=== PATIENT | female | born 1955 | race Caucasian/White ===

== ENCOUNTER → 2018-09-05 | Outpatient (CLI) | payer BC ==
--- NOTE | 2018-09-05 15:33 | XR ---
EXAMINATION TYPE: XR Hip Complete RT DATE OF EXAM: 09/05/2018 CLINICAL HISTORY: pain TECHNIQUE: AP and frogleg views of the right hip are obtained. COMPARISON: None. FINDINGS: There is no acute fracture/dislocation evident. The joint space appears within normal li mits. The overlying soft tissue appears unremarkable. IMPRESSION: 1. There is no acute fracture or dislocation. ICD 10 NO FRACTURE, INITIAL EVALUATION
== END | disposition home or self-care (01) ==
LOC: RADXRMAIN 12:42
PROVIDERS: ATTEND Physician Assistant
DX: M25.551 Pain in right hip (principal)
CPT/HCPCS: 73502

== ENCOUNTER → 2019-06-19 | Outpatient (CLI) | payer BC ==
--- NOTE | 2019-06-20 08:48 | XR ---
EXAMINATION TYPE: XR lumbar spine 2 or 3V DATE OF EXAM: 06/19/2019 CLINICAL HISTORY: Low back pain TECHNIQUE: Frontal, lateral, and oblique images of the lumbar spine are obtained. COMPARISON: None FINDINGS: There are 5 lumbar type vertebral bodies identified. No acute fracture or dislocation. Min imal anterolisthesis of L4 and L5. Multilevel facet arthropathy at L3-4, L4-5 and L5-S1 with disc spa ce narrowing at L4-5 and L5-S1. Pedicles and sacroiliac joints appear intact. IMPRESSION: Minimal anterolisthesis of L4 on L5 with spondylotic changes from L3-L4 to L5-S1.
== END | disposition home or self-care (01) ==
LOC: RADXRMAIN 16:59
PROVIDERS: ATTEND Family Medicine
DX: M43.16 Spondylolisthesis, lumbar region (principal); M47.816 Spondylosis without myelopathy or radiculopathy, lumbar region
CPT/HCPCS: 72100

== ENCOUNTER → 2019-07-13 | Outpatient (CLI) | payer BC ==
--- NOTE | 2019-07-13 09:43 | MR ---
EXAMINATION TYPE: MR lumbar spine wo con DATE OF EXAM: 07/13/2019 COMPARISON: NONE HISTORY: Low back pain TECHNIQUE: T1 and T2 axial and sagittal images of the lumbar spine are submitted. FINDINGS: There is no abnormal signal seen within the visualized spinal cord or paraspinal soft tissu es. At L1-2 there is there is a focal left paracentral disc protrusion. Mild effacement of thecal sac. No foraminal encroachment. At L2-3 there is no disc herniation or canal stenosis. No foraminal encroachment. At L3-4 there is disc desiccation. No disc herniation. Mild facet arthropathy. No canal stenosis or f oraminal encroachment. At L4-5 there is there is a grade 1 anterolisthesis with severe facet arthropathy. Broad-based centra l disc bulging is noted and there is moderate left foraminal and mild right foraminal encroachment. D egenerative disc disease noted with mild central stenosis. At L5-S1 there is vertebral body hemangioma L5. Degenerative disc disease L5-S1 with a right paracent ral and lateral disc bulging or protrusion. Mild right-sided foraminal encroachment. IMPRESSION: 1. Multilevel degenerative disc disease and facet arthropathy most pronounced at L4-5 and L5-S1. Grad e 1 anterolisthesis L4 and L5 contributes to borderline to mild central canal stenosis and bilateral foraminal encroachment. 2. Small focal left paracentral disc protrusion at L1-L2 with mild effacement of thecal sac. No spina l cord contact or foraminal encroachment. 3. Right paracentral and lateral disc bulging at L5-S1 with mild right-sided foraminal encroachment.
== END | disposition home or self-care (01) ==
LOC: RADMRIMAIN 08:28
PROVIDERS: ATTEND Physician Assistant
DX: M48.061 Spinal stenosis, lumbar region without neurogenic claudication (principal); M51.26 Other intervertebral disc displacement, lumbar region; M51.36 Other intervertebral disc degeneration, lumbar region; M46.96 Unspecified inflammatory spondylopathy, lumbar region
CPT/HCPCS: 72148

== ENCOUNTER → 2020-06-10 | Outpatient (CLI) | payer BC ==
--- NOTE | 2020-06-11 05:02 | MR ---
EXAMINATION TYPE: MR hip RT wo con DATE OF EXAM: 06/10/2020 COMPARISON: None HISTORY: Reactive arthritis of right hip, rt hip pain, clicking and locking Multiplanar multiecho imaging of the right hip was performed without contrast. FINDINGS: The pelvic ring appears intact. There is no evidence of pelvic fracture. Proximal right femur and hip joint are intact. There is no evidence of hip dysplasia. There is no evidence of avascular necrosis. There is no free fluid in the pelvis. There is mild hypertrophic acetabular spurring in the right hi p joint. I see no focal bone destruction. There is no evidence of a soft tissue mass. There is very s light increased joint fluid on the right side compared to the left. IMPRESSION: Mild symmetric acetabular spur formation. No fracture seen. No evidence of avascular necrosis. Slight increased fluid on the right side compared to the left could relate to some mild synovitis.
== END | disposition home or self-care (01) ==
LOC: RADMRIMAIN 07:16
PROVIDERS: ATTEND Neurological Surgery
DX: M25.751 Osteophyte, right hip (principal); M25.451 Effusion, right hip

== ENCOUNTER 2023-05-17 09:29 | Day surgery (SDC) | payer BC, MEDICARE ==
[2023-05-12 11:36] VITALS: BMI 41.1
[~2023-05-17 09:29] MED LIST: LACTATED RINGERS 1,000 ML IV SCH; LIDOCAINE 1% (10MG/ML) FOR IV START INTRADERMA PRN
[2023-05-17 10:42] VITALS: RESP 16; TEMP 98.5
[2023-05-17] MEDS ORDERED: PROPOFOL 10 MG/ML 20 ML VIAL IV ONE (11:46)
--- NOTE | 2023-05-17 11:58 | P.PCN ---
Date of Procedure: 05/17/23 Procedure(s) Performed: BRIEF HISTORY: Patient is a 68-year-old pleasant White white female scheduled for an elective colonoscopy as a part of value should prior history of colon polyps. Last colonoscopy was 5 years ago. PROCEDURE PERFORMED: Colonoscopy. PREOPERATIVE DIAGNOSIS: History of colon polyps. IV sedation per Anesthesia. PROCEDURE: After informed consent was obtained, the patient, was brought into the endoscopy unit. IV sedation was administered by Anesthesia under continuous monitoring. Digital rectal examination was normal. Initially the Olympus CF-160 flexible video colonoscope was then inserted in the rectum, gradually advanced into the cecum without any difficulty. Careful examination was performed as the scope was gradually being withdrawn. Ileocecal valve and the appendiceal orifice were visualized and appeared normal. Prep was excellent. Mucosa of the cecum, ascending colon, transverse colon, descending colon, sigmoid colon, and rectum appeared normal. Retroflexion was performed in the rectum and no lesions were seen. The patient tolerated the procedure well. IMPRESSION: Normal-appearing colon from rectum to cecum with no evidence of colorectal neoplasia. RECOMMENDATIONS: Findings of this examination were discussed with the patient as well as a family. She was advised to have a repeat screening colonoscopy in 10 years..
[2023-05-17 12:27] VITALS: BP 145/77; PULSE 62
== END 2023-05-17 12:44 | disposition home or self-care (01) ==
LOC: ORWHC2ENDO 09:29
PROVIDERS: ATTEND Internal Medicine Gastroenterology
DX: Z12.11 Encounter for screening for malignant neoplasm of colon (principal); I10 Essential (primary) hypertension; Z86.010 Personal history of colon polyps; Z79.899 Other long term (current) drug therapy
CPT/HCPCS: G0105; J2704; 45378

== ENCOUNTER → 2023-07-25 | Outpatient (CLI) | payer MEDICARE ==
--- NOTE | 2023-07-25 09:45 | BD ---
EXAMINATION TYPE: Axial Bone Density DATE OF EXAM: 07/25/2023 CLINICAL HISTORY: 68 years old Female. ICD-10 CODE: Z78.0 asymp.menopausal state Height: 62.6 Weight: 257 FRAX RISK QUESTIONS: nothing to note here. RISK FACTORS HISTORY OF: Postmenopausal woman: yes at 57 yrs old. Hyperparathyroidism: no Adrenal Insufficiency: no MEDICATIONS: Additional Medications: bp meds, statin for cholesterol, vit d Additional History: hypertension, cholesterol, EXAM MEASUREMENTS: Bone mineral densitometry was performed using the [employer] System. Bone mineral density as measured about the Lumbar spine is: ----- L1-L4(G/cm2): 1.124 T Score Values are as follows: ----- L1: -1.3 ----- L2: -0.6 ----- L3: -0.7 ----- L4: 0.3 ----- L1-L4: -0.5 Z Score Values are as follows: ----- L1: -0.9 ----- L2: -0.2 ----- L3: -0.3 ----- L4: 0.7 ----- L1-L4: 0.0 Bone mineral density first dexa study....baseline. Bone mineral density about the R hip (g/cm2): 1.025 Bone mineral density about the L hip (g/cm2): 1.092 T Score values are as follows: -----R Neck: -0.6 -----L Neck: -1.4 -----R Total: 0.1 -----L Total: 0.7 Z Score values are as follows: -----R Neck: 0.1 -----L Neck: -0.7 -----R Total: 0.6 -----L Total: 1.1 Bone mineral density is a baseline study today. FRAX%s: The graph provided illustrates a 7.6% chance for a major osteoporotic fx and a 0.8% chance fo r the hips probability for fx in 10 years time. IMPRESSION: Osteopenia (T Score between -2.5 and -1). There is slightly increased risk of fracture and the patient may be considered for treatment. Re-Screen 2-5 years. NOTE: T-SCORE=SD OF THE YOUNG ADULT MEAN.
--- NOTE | 2023-07-25 13:25 | MM ---
Reason for Exam: Screening (asymptomatic). Last mammogram was performed 3 year(s) and 3 month(s) ago. Patient History: Menarche at age 14. First Full-Term at age 24. Postmenopausal. Paternal aunt had breast cancer, age 60. Paternal aunt had breast cancer at or over age 50. Paternal uncle had breast cancer, age 60. Risk Values: Bouchra 5 year model risk: 1.5%. NCI Lifetime model risk: 5.4%. Prior Study Comparison: 04/22/2020 Bilateral Screening Mammogram, [facility]. Tissue Density: The breast tissue is heterogeneously dense. This may lower the sensitivity of mammography. Findings: Analyzed By CAD. There is no suspicious group of microcalcifications or new suspicious mass. Overall Assessment: Negative, BI-RAD 1 Management: Screening Mammogram of both breasts in [address] [facility] will attempt to contact patient to return for supplemental views and ultrasound if indicated. Patient should continue monthly self-breast exams. A clinical breast exam by your physician is recommended on an annual basis. This exam should not preclude additional follow-up of suspicious palpable abnormalities. Note on Bouchra scores and lifetime risk: 1. A Bouchra score greater than 3% is considered moderate risk. If this is the case, consider specialist referral to assess eligibility for a risk reducing agent. 2. If overall lifetime risk for the development of breast cancer is 20% or higher, the patient may qualify for future screening with alternating mammogram and breast MRI. Electronically signed and approved by: Kenny Garnett DO
== END | disposition home or self-care (01) ==
LOC: RADMAMWWP 06:56
PROVIDERS: ATTEND Family Medicine
DX: Z12.31 Encounter for screening mammogram for malignant neoplasm of breast (principal); Z78.0 Asymptomatic menopausal state; Z80.3 Family history of malignant neoplasm of breast
CPT/HCPCS: 77067; 77080

== ENCOUNTER → 2023-09-19 | Outpatient (CLI) | payer MEDICARE ==
[2023-09-19 12:43] VITALS: BP 177/108; PULSE 99; RESP 15; TEMP 98.6
--- NOTE | 2023-09-19 15:05 | P.PAINPG ---
PQRS Measure Charge Sheet Comment: HISTORY OF PRESENT ILLNESS: A 68 yr old female as a referral from Dr Brown presents today w severe and chronic R sided LBP secondary to anterolisthesis, DDD, and facet arthropathy without myelopathy for evaluation. Pt has records from Dr Mendenhall's office and states that in Nov 2019, she underwent a R TFESI of the L4-L5, L5-S1 where she experienced 65% pain relief x 1 yr s/p procedure. Pt states pain level is provoked at 6/10 in intensity, constant, localized in the R lower lumbar spine, predominantly axial, throbbing in character w shooting pain towards the RLE. Pain is provoked by bending or vacuuming. Pain is alleviated by PT 3 yrs ago, heat, medications (Aleve), TENS unit use, topical, repositioning and rest. Oswestry axial pain score at 24. PMH: OA, HTN, Hyperlipidemia PSH: Colonoscopy (2022, 2016), x2 SH: Negative x3 FH: Non contributory All: See list Meds: See list REVIEW OF ORGAN SYSTEMS: CONSTITUTIONAL: No fevers or chills. No recent weight loss. NEUROLOGICAL: + numbness and tingling along the distal extremities. No seizure disorders or headaches. MUSCULOSKELETAL: + pain PSYCHIATRIC: Denies current depression or suicidal thoughts. Physical Examinations : Constitutional : Cooperative , not in acute distress . Neurologic : Cranial nerve II to XII intact. No focal neurological deficits. Psychiatric : alert & oriented x 3. Matching mood & appropriate affect. Judgment & insight intact. Musculoskeletal : Cervical Spine Motor strength in the deltoid and biceps: Normal right side. Normal Left side Motor strength biceps and the wrist extensors: Normal right side . Normal left side Motor strength in the triceps muscle: Normal right side. Normal left side Deep tendon reflexes: Normal at the biceps. Normal at Brachioradialis. Normal at triceps Vertebral body tenderness to deep palpation over Cervical facet loading test: positive bilaterally Spurling test: positive bilaterally Neck distraction test: positive bilaterally Carlyle sign: positive bilaterally Lumbar spine Motor strength lower extremities ,thigh and legs 5/5 Right side , 5/5 Left side Deep tendon reflexes : Normal Knee Jerk. Normal Ankle Jerk Vertebral body tenderness over L5 Jonas Test positive Lumbar facet Loading Test: positive Right / positive Left Range of motion of the lumbar spine Flexion 30 degrees, extension 10 degrees Straight Leg Raise test: Left/ Right positive at 35 degrees Dory test: positive right / positive left. Severe tenderness over the Sacroiliac joint on the Right / Left sides Gaenslen test: positive bilaterally Seated flexion test: positive bilaterally. Sacral spine : Severe tenderness over the Sacroiliac joint: right side / left side Range of motion: Flexion of the lumbar spine <60 degrees Range of motion: Extension of the lumbar spine <20 degrees Gaenslen's Test positive Dory test: positive right side / left side Thigh Thrust Test Sacral Thrust Test Imaging: MRI noncontrast of the lumbar spine from 07/13/19 reviewed MRI noncontrast of the R hip from 06/10/20 review Assessment/ Plan : Lumbar anterolisthesis, R hip DJD Recommendation of x-ray lumbar spine M51.36 May need additional testing if indicated. May benefit from R TFESI L5-S1 based on the description and PE findings. All questions answered. I have spent greater than 30 minutes on patient care today. Dr Freire was available by phone for the evaluation of this patient. The time was used to review the medical records including relevant urine studies and Prescription history (MAPs), review of the available imaging, evaluation and examination of the patient, coordination of care with the medical staff and if applicable referring physicians, as well as creation of the medical record PQRS Narrative: Smoking Status Never smoker Home Medications: Ambulatory Orders Naproxen Sodium [Aleve] 220 mg PO DIRECTED PRN 10/12/17 Co Q-10 (Unknown Dose) 1 dose PO DAILY 05/12/23 Simvastatin [Zocor] 20 mg PO HS 05/12/23 Vitamin D (Unknown Dose0 1 dose PO DAILY 05/12/23 lisinopriL [Zestril] 10 mg PO DAILY 05/12/23 Controlled Substance Measures - Controlled Substance Measures Is patient prescribed a controlled substance at discharge?: No
== END ==
LOC: PNWHC3 10:36
PROVIDERS: ATTEND Specialist
DX: M54.50 Low back pain, unspecified (principal); M19.90 Unspecified osteoarthritis, unspecified site; I10 Essential (primary) hypertension; Z86.39 Personal history of other endocrine, nutritional and metabolic disease; M16.11 Unilateral primary osteoarthritis, right hip; M43.16 Spondylolisthesis, lumbar region; Z79.899 Other long term (current) drug therapy
CPT/HCPCS: 99211

== ENCOUNTER 2023-10-13 07:09 | Day surgery (SDC) | payer MEDICARE ==
[~2023-10-13 07:09] MED LIST changes: -LIDOCAINE 1% (10MG/ML) FOR IV START INTRADERMA PRN
[2023-10-13 08:12] VITALS: TEMP 97.3
[2023-10-13] MEDS ORDERED: IOPAMIDOL M200 10 ML VIAL ONE (08:33)
[2023-10-13] MEDS ORDERED: methylPREDNISolone ACETATE 80 MG/ML 1 ML VIAL ONE (08:33)
--- NOTE | 2023-10-13 08:48 | P.PCN ---
Date of Procedure: 10/13/23 Procedure(s) Performed: PREOPERATIVE DIAGNOSIS: 1-Lumbar radiculopathy . 2-lumbar degenerative disc disease. 3-lumbar foraminal stenosis POSTOPERATIVE DIAGNOSIS: 1-lumbar radiculopathy. 2-lumbar degenerative disc disease. 3-lumbar foraminal stenosis PROCEDURE 1. Transforaminal epidural steroid injection under fluoroscopic guidance at right L5-S1 level. (Fluoroscopy images stored on file in the radiology Department ) 2. Lumbar epidurogram . ANESTHESIA: Local with 1% lidocaine 3 ml. EBL: Minimal PROCEDURE INDICATION: The patient with low back pain and radiculopathy symptoms unresponsive to conservative treatment. PROCEDURE DESCRIPTION / TECHNIQUE: The patient was seen and identified in the preoperative area. Risks, benefits, complications, and alternatives were discussed with the patient. The patient agreed to proceed with the procedure and signed the consent. IV was started, and vital signs were stable. Patient was taken to the OR and time out was completed. The patient was placed in the prone position on procedure table and a pillow was placed under the abdomen to reduce lumbar lordosis. The lumbosacral area was prepped and draped in the usual sterile fashion. Critical pause was taken. Vital signs were closely monitored during the procedure. Using oblique fluoroscopy, the chin of the ``Augusto dog at right L5-S1 level was identified, and the skin and deeper tissues just below was localized with 1% lidocaine. Subsequently, a 22-gauge 5-inch spinal needle was advanced under a tunneled view fluoroscopic guidance just underneath the chin of the ``Augusto dog at the right L5-S1 Under lateral fluoroscopy, the needle was then advanced to the posterior border of the interforaminal space. After negative aspiration of CSF and blood and with no paresthesias, 1 mL Isovue 200 contrast dye was injected excellent epidurogram and outlining of the nerve root Subsequently, 3 mL of block solution containing 60 mg Depo-Medrol and 2 mL of 0.9% normal saline PF was injected. Needle was removed . At the end of the procedure, skin was cleansed, and bandages were applied. COMPLICATIONS:none DISPOSITION / PLANS: The patient was placed in a supine position and transferred to the recovery area in a stable condition for observation. There was no evidence of lower extremity motor or sensory deficit after the procedure. Patient was discharged from the recovery room after meeting discharge criteria. Home discharge instructions were given to the patient by the staff. The patient was reexamined prior to discharge.
--- NOTE | 2023-10-13 08:58 | FL ---
EXAMINATION TYPE: FL guided pain mgmt statistic DATE OF EXAM: 10/13/2023 CLINICAL HISTORY: Low back pain. TECHNIQUE: Fluoroscopy. COMPARISON: None. FINDINGS: Fluoroscopic guidance was provided during pain relief procedure performed by Dr. Freire . A total of 11.1 seconds of fluoroscopic time was utilized during the procedure and 1 spot images a re acquired. Single limited acquired shows needle localization at the right L5 level with contrast i njection. IMPRESSION: As Above.
[2023-10-13 09:25] VITALS: BP 135/82; PULSE 70; RESP 17
== END 2023-10-13 09:10 | disposition home or self-care (01) ==
LOC: ORPAIN 07:09
PROVIDERS: ATTEND Specialist
DX: M51.16 Intervertebral disc disorders with radiculopathy, lumbar region (principal); M48.061 Spinal stenosis, lumbar region without neurogenic claudication
CPT/HCPCS: 64483; J1040; Q9966

== ENCOUNTER → 2024-03-01 | Outpatient (CLI) | payer MEDICARE ==
--- NOTE | 2024-03-02 07:34 | CA ---
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 18 - 58 / 22 - 52 cm??? LA Volume Index 24.4 cm???/m??? 16 - 28 cm???/m??? M-MODE Aortic Root Diameter MM 2.7 cm LA Systolic Diameter MM 3.5 cm LA Ao Ratio MM 1.3 AV Cusp Separation MM 1.1 cm DOPPLER AV Peak Velocity 304.8 cm/s AV Peak Gradient 37.2 mmHg AV Mean Velocity 219.9 cm/s AV Mean Gradient 21.4 mmHg AV Velocity Time Integral 52.8 cm AI Peak Velocity 0.0 cm/s AI Peak Gradient 0.0 mmHg AI Pressure Half Time 0.0 ms LVOT Peak Velocity 121.9 cm/s LVOT Peak Gradient 5.9 mmHg LVOT Velocity Time Integral 20.8 cm MV Area PHT 3.7 cm??? Mitral E Point Velocity 44.8 cm/s Mitral A Point Velocity 101.1 cm/s Mitral E to A Ratio 0.4 MV Deceleration Time 207.2 ms MV E' Velocity 4.9 cm/s Mitral E to MV E' Ratio 9.2 TR Peak Velocity 238.8 cm/s TR Peak Gradient 22.8 mmHg Right Ventricular Systolic Press 26.0 mmHg FINDINGS Left Ventricle Severely increased left ventricular wall thickness. Left ventricular cavity size normal. Normal left ventricular systolic function with no obvious regional wall motion abnormalities. Left ventricular ejection fraction is estimated at 55-60 %. Grade 1 diastolic dysfunction. Right Ventricle Normal right ventricular size and function. Right ventricular systolic pressure within normal limits. Right Atrium Normal right atrial size. Left Atrium Mildly increased left atrial volume. Mitral Valve Structurally normal mitral valve. Mitral valve thickened. Moderate mitral annular calcification. Mild mitral regurgitation. Aortic Valve Mild aortic stenosis with a peak gradient of 37 mmHg and a mean gradient of 21 mmHg. No aortic regurgitation. Tricuspid Valve Structurally normal tricuspid valve. Mild tricuspid regurgitation. Pulmonic Valve Structurally normal pulmonic valve. Trace pulmonic regurgitation. Pericardium No pericardial effusion. Aorta Normal size aortic root and proximal ascending aorta. CONCLUSIONS Preserved LV systolic function Mild-moderate aortic stenosis Previewed by: Dr. Tony Ang MD (Electronically Signed) Final Date: 02 March 2024 07:33
== END | disposition home or self-care (01) ==
LOC: RADECHMAIN 14:43
PROVIDERS: ATTEND Family Medicine
DX: I35.0 Nonrheumatic aortic (valve) stenosis (principal)
CPT/HCPCS: 93306

== ENCOUNTER → 2024-07-07 | Outpatient (CLI) | payer MEDICARE | END | disposition home or self-care (01) | LOC: LABPAT 08:43 | PROVIDERS: ATTEND Orthopaedic Surgery | DX: Z01.812 Encounter for preprocedural laboratory examination (principal); M16.11 Unilateral primary osteoarthritis, right hip; Z22.322 Carrier or suspected carrier of Methicillin resistant Staphylococcus aureus | CPT/HCPCS: 86850; 86900; 86901; 87070 ==

== ENCOUNTER 2024-07-11 05:43 | Day surgery (SDC) | payer MEDICARE ==
[2024-07-05 12:20] VITALS: BMI 43.4
--- NOTE | 2024-07-10 13:49 | HP ---
HISTORY AND PHYSICAL DATE OF SCHEDULED SURGERY: 07/11/2024. HISTORY OF PRESENT ILLNESS: Selina Dawn is a patient seen with symptomatic right hip osteoarthritis. We discussed options regarding treatment. She elected to proceed with direct anterior right total hip arthroplasty. Consent was obtained. Cardiac clearance was provided by Dr. Romo. PAST MEDICAL HISTORY: Hypertension, hyperlipidemia. PAST SURGICAL HISTORY: Noncontributory. DAILY MEDICATIONS: 1. Amlodipine. 2. Lisinopril. 3. Rosuvastatin. 4. Valtrex. ALLERGIES: None. SOCIAL HISTORY: She denies tobacco use. PHYSICAL EVALUATION OF THE RIGHT HIP: She has limited range of motion with severe pain, positive hip impingement sign. Straight-leg raise negative. Her distal neurovascular exam is intact. IMAGING STUDIES: Radiographs of the right hip revealed severe osteoarthritic changes. IMPRESSION: 1. Right hip osteoarthritis. 2. Hypertension. 3. Hyperlipidemia. PLAN: Direct anterior right total hip arthroplasty. MMODL / IJN: [id number] /
[~2024-07-11 05:43] MED LIST changes: -LACTATED RINGERS 1,000 ML IV SCH; +TRANEXAMIC 1,000 MG/100ML-NACL 1,000 MG in SALINE 1 100ML.BAG IVPB PRN
[2024-07-11] MEDS ORDERED: LIDOCAINE 1% (10MG/ML) FOR IV START INTRADERMA PRN (06:23)
[2024-07-11] MEDS: IV FLUID CONTINUATION 1,000 ML IV ONE ×2 (06:23→11:35)
[2024-07-11] MEDS: MELOXICAM 7.5 MG TAB PO PRN (06:59)
[2024-07-11] MEDS: ACETAMINOPHEN TAB 500 MG TAB PO PRN (06:59)
[2024-07-11] MEDS: ONDANSETRON 4 MG/2 ML VIAL IVP ONE (06:59)
[2024-07-11] MEDS: MIDAZOLAM 2 MG/2 ML VIAL IVP ONE (07:03)
--- NOTE | 2024-07-11 07:18 | P.ANPRN ---
Procedure Note - Anesthesia - Nerve Block Performed Right Eber Single Time Out Performed: Yes Date of Procedure: 07/11/24 Procedure Start Time: : Procedure Stop Time: : Location of Patient: PreOp Indication: Acute Post-Operative Pain, Analgesia, Requested by Surgeon Sedation Type: Sedate with meaningful contact maintained Preparation: Sterile Prep Position: Supine Needle Types: Pajunk Needle Gauge: 21 Ultrasound used to visualize needle placement: Yes Ultrasound used to observe medication spread: Yes Injectate: 0.5% Ropivacaine (see comment for volume) (Ropiv 20ml+Decadron 4mg) Blood Aspirated: No Pain Paresthesia on Injection Noted: No Resistance on Injection: Normal Image Stored and Saved: Yes Events: Uneventful and Well Tolerated
[2024-07-11] MEDS: FAMOTIDINE 20 MG/2 ML VIAL IV STA (07:21)
[2024-07-11] MEDS ORDERED: BUPIVACAIN-EPI 0.5%-1:200,000 30 ML VIAL ONE (07:25)
[2024-07-11] MEDS ORDERED: ROCURONIUM 10 MG/ML (5 ML VIAL) IV ONE (07:25)
[2024-07-11] MEDS ORDERED: PROPOFOL 10 MG/ML 20 ML VIAL IV ONE (07:25)
[2024-07-11] MEDS ORDERED: PHENYLEPHRINE 10 MG/ML VIAL ONE (07:25)
[2024-07-11] MEDS ORDERED: DEXAMETHASONE SOD PHOSPHATE 4 MG/ML 1 ML VIAL ONE (07:25)
[2024-07-11] MEDS ORDERED: NEOSTIGMINE 1 MG/ML 10 ML VIAL ONE (07:25)
[2024-07-11] MEDS ORDERED: GLYCOPYRROLATE 0.2 MG/ML 2 ML VIAL ONE (07:25)
[2024-07-11] MEDS ORDERED: TRANEXAMIC 1,000 MG/100ML-NACL PREMIX BAG ONE (07:25)
[2024-07-11] MEDS ORDERED: KETAMINE HCL IN 0.9 % NACL 50 MG/5 ML SYRINGE ONE (07:25)
[2024-07-11] MEDS ORDERED: fentaNYL (PF) 50 MCG/ML 2 ML AMP ONE (07:25)
[2024-07-11] MEDS ORDERED: MIDAZOLAM 2 MG/2 ML VIAL ONE (07:25)
[2024-07-11] MEDS ORDERED: SUCCINYLCHOLINE CHLORIDE 200 MG/10 ML VIAL IV ONE (07:25)
[2024-07-11] MEDS: ceFAZolin 1,000 MG in SODIUM CHLORIDE 0.9% 1,000 ML IRRIGATION ONE (07:56)
[2024-07-11] MEDS: LACTATED RINGERS 1,000 ML IV ONE (08:43)
[2024-07-11] MEDS: VANCOMYCIN 1,000 MG VIAL MISCELLANE ONE (08:51)
[2024-07-11] MEDS ORDERED: HYDROcodone/APAP 7.5-325MG 1 EACH TAB PO PRN (09:14)
[2024-07-11] MEDS ORDERED: ONDANSETRON 4 MG/2 ML VIAL IVP PRN (09:14)
[2024-07-11] MEDS ORDERED: HYDROmorphone 0.5 MG/0.5 ML SYRINGE IVP PRN ×3 (09:14)
[2024-07-11] MEDS ORDERED: NALOXONE 0.4 MG/ML 1 ML VIAL IV PRN (09:14)
--- NOTE | 2024-07-11 09:14 | P.OP ---
Date of Procedure: 07/11/24 Preoperative Diagnosis: Right hip osteoarthritis Postoperative Diagnosis: Right hip osteoarthritis Procedure(s) Performed: Direct anterior right total hip arthroplasty Implants: 1. DePuy [place] standard 135 degree with collar size 10 press-fit femoral stem 2. DePuy [place] 52 mm press-fit acetabular shell 3. DePuy [place] neutral polyethylene acetabular liner 52 mm OD 36 mm ID 4. Delta Biolox ceramic femoral head +5 36 mm Anesthesia: GETA, regional (iPAQ block) Surgeon: Harman Giron Cash Processor #1: Mario Estes Estimated Blood Loss (ml): 65 Pathology: none sent Condition: stable Disposition: PACU Indications for Procedure: 69-year-old patient seen with symptomatic right hip osteoarthritis. After treatment options were discussed, she elected to proceed with direct anterior right total hip arthroplasty. Operative Findings: See description of procedure Description of Procedure: The patient was taken to the operative suite. Patient underwent a general anesthetic by the department of anesthesia. Patient was then transferred to the [place] table. Patient was given preoperative IV antibiotics and TXA. Both lower extremities were placed in standard leg spars. The hip was then prepped and draped in the normal sterile orthopedic fashion. A standard anterior incision was made beginning 3 cm lateral and 1 cm distal to the ASIS extending 10 cm. Dissection was then carried down through the subcutaneous soft tissues down to the fascia overlying the tensor fascia bishop. An incision was now made through the fascia. Careful dissection was taken down exposing the tensor fascia bishop muscle. A Cobra retractor was now placed along the medial femoral neck and a second one along the lateral femoral neck. The venous circumflex vessels were now identified, cauterized and clipped. We identified the anterior hip capsule. An incision was made through the hip capsule along the lateral border. I performed a partial anterior capsulectomy. Retractors were now placed around the femoral neck itself. A femoral neck cut was now made with a sagittal saw. It was completed with an osteotome at the lateral neck area. The femoral head was now removed without difficulty. The extremity was now rotated to 60 of external rotation. It was locked in position. Residual labrum was now debrided out. Serial reaming was performed of the acetabulum while Alex REYNA assisted holding an anterior retractor for exposure. Once we reached the appropriate size and a trial was position and fit nicely. The appropriate size was now chosen opened and made available. It was introduced into the acetabulum without difficulty. The C-arm/fluoroscopy was now brought into the operative field. We made sure we had a true AP pelvic view. We now under direct C- arm/fluoroscopy introduced into the acetabular component with appropriate version and inclination. I held the cup in appropriate position well Alex REYNA used a mallet to seat the acetabular component. I noted the component now to be well seated and stable. Acetabular cup introduce her was removed. The C-arm was pulled back. An appropriate liner was introduced and clicked into position. It was felt to be stable. At this point retractors were removed. The extremity was now placed into 140 external rotation with no traction. The leg was now dropped to the ground and adducted. Appropriate retractors were now positioned along the proximal femur. We also placed our femoral look into position. Additional capsular releasing was performed to gain access to the proximal femur. We now used a box osteotome. A canal finder was now utilized. Serial broaching was now performed with the assistance of Alex REYNA tapping the broaches down with a mallet while held the broach in appropriate rotation and position. This was done until we reached the appropriate size with good overall rotational stability. Appropriate calcar planing was performed. A trial head/neck was placed into position. The hip was now reduced. The C- arm/fluoroscopy was brought back into the operative field. I obtained an AP pelvis demonstrating adequate leg length alignment. The trial components appeared adequately sized and positioned. The C-arm/fluoroscopy was pulled back. Retractors were repositioned and the hip was dislocated. The leg was again taken down to the ground and adducted. Appropriate retractors were repositioned as well as the femoral hook. All trial components were removed. The femoral implant was opened along with the femoral head. The femoral implant was introduced on the appropriate handle into our pre-broached area. I held the component position well Alex REYNA used a mallet to seat the femoral component. The femoral component was now noted to be well seated and stable.. The femoral head was introduced with good positioning and fixation noted. Retractors were now removed. The hip was now reduced. There appeared be good positioning of the hip confirmed on intraoperative fluoroscopy. Spot films were obtained to document this. A second gram of TXA was given. Bipolar cautery had been utilized intermittently through the procedure for hemostasis. The wound was irrigated copiously with pulse lavage mechanical irrigation. The fascia was repaired with Vicryl suture. The subcutaneous soft tissues were repaired in layers with Vicryl suture. The skin was approximated with pernio/Dermabond. Sterile dressings were applied. Patient was then awakened, transferred to a bed and taken to recovery in stable condition. Alex REYNA assisted with the complex procedure.
[2024-07-11] MEDS: GLYCOPYRROLATE 0.2 MG/ML 2 ML VIAL IVP STA (10:31)
[2024-07-11] MEDS: HYDROmorphone 0.5 MG/0.5 ML SYRINGE IVP PRN (10:37)
[2024-07-11] MEDS: LACTATED RINGERS 1,000 ML IV SCH ×2 (11:53→11:54)
[2024-07-11] MEDS: droPERidol 5 MG/2 ML VIAL IVP ONE (11:55)
[2024-07-11] MEDS: MIDAZOLAM 2 MG/2 ML VIAL IM ONE (11:56)
[2024-07-11] MEDS: DEXAMETHASONE SOD PHOSPHATE 4 MG/ML 1 ML VIAL IM STA (11:56)
--- NOTE | 2024-07-11 13:47 | P.CONS ---
History of Present Illness - History of Present Illness Patient is a pleasant 69-year-old female admitted for right total hip arthroplas ty patient is clinically doing well at this time patient I saw her postoperatively patient is still coming out of anesthesia. Patient does have hypertension patient blood pressure is low normal at this time. REVIEW OF SYSTEMS: All other systems are negative except those mentioned in the HPI PHYSICAL EXAMINATION: GENERAL: The patient is alert and oriented x3, not in any acute distress. Well developed, well nourished. HEENT: Pupils are round and equally reacting to light. EOMI. No scleral icterus. No conjunctival pallor. Normocephalic, atraumatic. No pharyngeal erythema. No thyromegaly. CARDIOVASCULAR: S1 and S2 present. No murmurs, rubs, or gallops. PULMONARY: Chest is clear to auscultation, no wheezing or crackles. ABDOMEN: Soft, nontender, nondistended, normoactive bowel sounds. No palpable organomegaly. MUSCULOSKELETAL: Deferred to orthopedic surgery EXTREMITIES: No cyanosis, clubbing, or pedal edema. NEUROLOGICAL: Gross neurological examination did not reveal any focal deficits. SKIN: No rashes. Assessment and plan -Right total knee arthroplasty pain management is being done by orthopedic surgery will monitor her postoperatively for any postop complications. -Hypertension hold off antihypertensive medications temporarily with concerns of perioperative hypotension will start on as-needed basis -Hyperlipidemia can be resumed on statin DVT prophylaxis: As per primary service. Past Medical History Past Medical History: Hyperlipidemia, Hypertension, Osteoarthritis (OA) Additional Past Medical History / Comment(s): Back pain. History of Any Multi-Drug Resistant Organisms: None Reported Past Surgical History: Breast Surgery, Section Additional Past Surgical History / Comment(s): X2, BREAST BIOPSY, COLONOSCOPIES, Pain Clinic Procedures. Past Anesthesia/Blood Transfusion Reactions: No Reported Reaction, Motion Sickness Additional Past Anesthesia/Blood Transfusion Reaction / Comm: "I'm a red head." Smoking Status: Never smoker - Past Family History Mother Family Medical History: No Reported History Brother(s) Family Medical History: Cancer Additional Family Medical History / Comment(s): Pancreatic cancer. Medications and Allergies Home Medications Medication Instructions Recorded Confirmed Type lisinopriL [Zestril] 10 mg PO QAM 05/12/23 07/05/24 History Acetaminophen Tab [Tylenol Tab] 500 - 1,000 mg PO Q4-6H PRN 07/05/24 07/05/24 History Rosuvastatin [Crestor] 20 mg PO HS 07/05/24 07/05/24 History Ubidecarenone [Co Q-10] 100 mg PO HS 07/05/24 07/05/24 History amLODIPine 10 mg PO QAM 07/05/24 07/05/24 History valACYclovir HCL [Valtrex] 1,000 mg PO BID PRN 07/05/24 07/05/24 History Allergies Allergy/AdvReac Type Severity Reaction Status Date / Time No Known Allergies Allergy Verified 07/11/24 06:32 Physical Exam Vitals: Vital Signs Temp Pulse Pulse Resp BP Pulse Ox 07/11/24 11:57 97.4 F L 53 L 18 110/68 94 L 07/11/24 11:34 58 L 18 99/56 95 07/11/24 11:20 50 L 15 106/58 98 07/11/24 11:05 55 L 15 114/59 95 07/11/24 10:50 52 L 16 108/58 94 L 07/11/24 10:35 67 16 108/55 95 07/11/24 10:20 45 L 12 110/56 97 07/11/24 10:05 44 L 12 104/58 97 07/11/24 09:50 56 L 16 96/55 94 L 07/11/24 09:35 97.2 F L 63 16 111/67 94 L 07/11/24 07:16 66 16 119/66 99 07/11/24 06:30 97.3 F L 71 16 145/85 94 L Intake and Output 07/10/24 07/11/24 07/11/24 22:59 06:59 14:59 Intake Total 400 1651 Output Total 65 Balance 400 1586 Intake: IV 400 1651 Output: Estimated Blood Loss 65 Other: Weight 117.1 kg
[2024-07-11] MEDS: ceFAZolin 3 GM in SODIUM CHLORIDE 0.9% 100 ML IVPB SCH (16:32)
[2024-07-11] MEDS: HYDROcodone/APAP 5-325MG 1 EACH TAB PO PRN (18:48)
[2024-07-11] MEDS: SENNOSIDES-DOCUSATE SODIUM 1 EACH TAB PO SCH (21:24)
[2024-07-11] MEDS: ASPIRIN 325 MG TAB PO SCH (21:24)
[2024-07-11] MEDS: ATORVASTATIN 40 MG TAB PO SCH (21:24)
[2024-07-12 08:16] VITALS: BP 125/73; PULSE 75; RESP 18; TEMP 97.9
[2024-07-12 09:21] LABS: Basophils # (A) 0.01 X 10*3/uL (0.00-0.10); Basophils % (A) 0.1 %; Eosinophils # (A) 0 X 10*3/uL (0.04-0.35); Eosinophils % (A) 0 %; HCT 33.1 % (37.2-46.3); HGB 10.9 g/dL (12.0-15.0); Lymphocytes # (A) 1.02 X 10*3/uL (0.90-5.00); Lymphocytes % (A) 8.7 %; MCH 31.2 pg (27.0-32.0); MCHC 32.9 g/dL (32.0-37.0); MCV 94.8 FL (80.0-97.0); Mean Platelet Volume 10.6 FL (9.5-12.2); Monocytes # (A) 0.83 X 10*3/uL (0.20-1.00); Monocytes % (A) 7.1 %; NRBC Per 100 WBC 0 X 10*3/uL (0.00-0.01); Neutrophils % (A) 83.6 %; Platelet Count 203 X 10*3/uL (140-440); RBC 3.49 X 10*6/uL (4.10-5.20); RDW 13.4 % (11.5-14.5); WBC 11.72 X 10*3/uL (4.50-10.00)
[2024-07-12] MEDS: FAMOTIDINE 20 MG TAB PO SCH (09:45)
--- NOTE | 2024-07-12 10:35 | P.PN ---
Subjective Progress Note Date: 07/12/24 Principal diagnosis: Status post direct anterior right total hip arthroplasty Patient evaluated today at bedside, she is resting in her hospital chair. She has been ambulating very well. She has no acute pain at this time. She denies headaches, lightheadedness, chest pain or shortness of breath Objective - Vital Signs Vital signs: Vital Signs Temp 97.9 F 07/12/24 08:00 Pulse 75 07/12/24 08:00 Resp 18 07/12/24 08:00 BP 125/73 07/12/24 08:00 Pulse Ox 93 L 07/12/24 08:00 FiO2 Intake & Output 07/11/24 07/12/24 07/12/24 18:59 06:59 18:59 Intake Total 1651 358 Output Total 65 Balance 1586 358 Weight 117.1 kg Intake: IV 1651 Oral 358 Output: Estimated Blood Loss 65 Other: # Voids 1 2 1 - Exam Right lower extremity: Incision is clean, dry, and intact. The foam dressing is in good condition. There is minimal soft tissue swelling and ecchymosis surrounding the medial and lateral aspects of the incision. Calf is soft, no tenderness with palpation. Plantar flexion, dorsiflexion, EHL, FHL are intact. Sensory exam to light touch throughout the extremity is intact, dorsal pedis pulses 2+. - Labs CBC & Chem 7: 07/12/24 04:50 Labs: Abnormal Lab Results - Last 24 Hours (Table) 07/12/24 Range/Units 04:50 WBC 11.72 H (4.50-10.00) X 10*3/uL RBC 3.49 L (4.10-5.20) X 10*6/uL Hgb 10.9 L (12.0-15.0) g/dL Hct 33.1 L (37.2-46.3) % Immature Gran # 0.06 H (0.00-0.04) X 10*3/uL Neutrophils # 9.80 H (1.80-7.70) X 10*3/uL Eosinophils # 0 L (0.04-0.35) X 10*3/uL Assessment and Plan Assessment: Postoperative day #1 status post direct anterior right total hip arthroplasty Plan: Pain control, plan for discharge home on [place] DVT prophylaxis, aspirin 81 mg twice a day for DVT prophylaxis Wound care instructions discussed, this to include when to remove bandage, icing and elevating and showering Encourage incentive spirometer Health care after discharge Medical recommendations appreciated Discharge planning: Patient stable for discharge home today Time with Patient: Less than 30
--- NOTE | 2024-07-12 10:39 | P.DS ---
Providers Date of admission: 07/11/2024 Expected date of discharge: 07/12/24 Attending physician: Harman Giron Consults: 07/11/24 09:14 Consult Physician Routine Consulting Provider: Terese Hopkins Consult Reason/Comments: Medical management Do you want consulting provider notified?: Yes Primary care physician: Yovani [place] Hospital Course: Date of admission: 07/11/2024 Date of discharge: 07/12/2024 Admission diagnosis: Status post direct anterior right total hip arthroplasty Discharge diagnosis: Same Attending physician: Dr. Giron Surgical procedures: Direct anterior right total hip arthroplasty Brief history: Patient is a 69-year-old female with a history of progressive primary right hip osteoarthritis. At this point patient has failed conservative treatment measures and has opted to proceed with a elective direct anterior right total hip arthroplasty. Hospital course: Details of patient's surgery can be found in operative report. Patient tolerated the procedure well and was subsequently transported to orthopedic floor. Patient's orthopeidc and medical care was provided daily. Patient had daily laboratory tests performed for evaluation of overall blood counts. Patient had daily physical therapy to include strengthening range of motion as well as education with walker ambulation. Patient was treated with aspirin for their postoperative DVT prophylaxis during their inpatient stay. Patient was noted to have a relatively uneventful postoperative course. Patient reported satisfactory pain control with oral pain medications by postoperative day 0. Patient showed satisfactory progress with physical therapy. Patient moved steadily through the program and had no difficulty meeting the goals by postoperative day 1. Given patient's otherwise satisfactory course and having met physical therapy goals, plan is to discharge patient home on postoperative day 1. Discharge condition/disposition: Patient will be discharged home in stable con dition. Discharge medications: Instructions are given on resumption of patient's normal daily medications per primary care recommendation, in addition patient will be prescribed [place], senna, aspirin. Discharge instructions: 1. Wound care and infection precautions, keep incision dry and covered while showering, no lotions, creams, moisturizers. No soaking, tubs, pools, hottubs. Do not scrub over the incision. 2. Weight-bear as tolerated with walker / cane until follow-up. 3. Ice and elevate when necessary. Do not exceed 20 minutes per hour with ice pack. 4. Utilize compression sleeve until seen at first follow up appointment. 5. Visiting nursing care. 6. Home physical therapy. 7. Pain meds and anticoagulants per prescription. 8. Pain medication has potential to cause constipation. Increase oral fluid and fiber intake. Contact primary care provider if you have not had a bowel movement within 48 hours after discharge 9. No anti-inflammatory medication until discussed at first post operative visit, this including Motrin, Aleve, Mobic, Diclofenac. 10. Follow up in office at 2 weeks postop with Alex Estes PA-C/Leander Saxena 11. Follow up with your primary care doctor 7-10 days after discharge. 12. Contact [facility] with any questions, . Procedures: Direct anterior right total hip arthroplasty Patient Condition at Discharge: Good Plan - Discharge Summary Discharge Rx Participant: Yes New Discharge Prescriptions: New HYDROcodone/APAP 5-325MG [[place] 5-325] 1 tab PO Q6HR PRN #28 tab PRN Reason: Pain Sennosides/Docusate Sodium [Senna-S 8.6-50 mg Tablet] 2 each PO DAILY PRN #30 tablet PRN Reason: Constipation Aspirin [Adult Low Dose Aspirin EC] 81 mg PO BID #60 tab No Action lisinopriL [Zestril] 10 mg PO QAM Acetaminophen Tab [Tylenol Tab] 500 - 1,000 mg PO Q4-6H PRN PRN Reason: Pain Ubidecarenone [Co Q-10] 100 mg PO HS Rosuvastatin [Crestor] 20 mg PO HS amLODIPine 10 mg PO QAM valACYclovir HCL [Valtrex] 1,000 mg PO BID PRN PRN Reason: Flare Up Discharge Medication List lisinopriL [Zestril] 10 mg PO QAM 05/12/23 [History] Acetaminophen Tab [Tylenol Tab] 500 - 1,000 mg PO Q4-6H PRN 07/05/24 [History] Rosuvastatin [Crestor] 20 mg PO HS 07/05/24 [History] Ubidecarenone [Co Q-10] 100 mg PO HS 07/05/24 [History] amLODIPine 10 mg PO QAM 07/05/24 [History] valACYclovir HCL [Valtrex] 1,000 mg PO BID PRN 07/05/24 [History] Aspirin [Adult Low Dose Aspirin EC] 81 mg PO BID #60 tab 07/12/24 [Rx] HYDROcodone/APAP 5-325MG [[place] 5-325] 1 tab PO Q6HR PRN #28 tab 07/12/24 [Rx] Sennosides/Docusate Sodium [Senna-S 8.6-50 mg Tablet] 2 each PO DAILY PRN #30 tablet 07/12/24 [Rx] Follow up Appointment(s)/Referral(s): Mario Estes PAC [PHYSICIAN CURB SETTER] - 2 Weeks Activity/Diet/Wound Care/Special Instructions: Orthopedic Discharge Instructions: 1. Wound care and infection precautions, keep incision dry and covered while showering, no lotions, creams, moisturizers. No soaking, pools, hot tubs. Do not scrub over incision. 2. Weight-bear as tolerated with walker / cane until follow-up. 3. Ice and elevate when necessary. Do not exceed 20 minutes per hour with ice pack. 4. Utilize compression sleeve until seen at first follow up appointment. 5. Pain meds and anticoagulants per prescription. 6. Pain medication has potential to cause constipation. Increase oral fluid and fiber intake. Contact primary care provider if you have not had a bowel movement within 48 hours after discharge. 7. No anti-inflammatory medication until discussed at first post operative visit, this including Motrin, Aleve, Mobic, Diclofenac. 8. Follow up in office at 2 weeks postop with Alex Estes PA-C/Leander Fregoso PA-C 9. Follow up with your primary care doctor 7-10 days after discharge. 10. Contact [facility] with any questions, . Wound care instructions: 1. Okay to remove surgical dressing as of 07/18/2024 2. Okay to shower directly over the incision after removal of dressing Discharge Disposition: HOME WITH HOME HEALTH SERVICES
--- NOTE | 2024-07-12 14:09 | P.PN ---
Subjective Progress Note Date: 07/12/24 Patient is a pleasant 69-year-old female admitted for right total hip arthroplasty patient is clinically doing well at this time patient I saw her postoperatively patient is still coming out of anesthesia. Patient does have hypertension patient blood pressure is low normal at this time. 07/12/2024 Patient is evaluated in follow-up she is postoperative doing well she is complaining of no pain at the right hip arthroplasty site. She has been up ambulating and worked with physical therapy was cleared for discharge home. Patient has been running in the 110s systolic blood pressure she is maintained on lisinopril and amlodipine outpatient which have not been resumed this hospital stay. Discussed in extent with patient that she should be monitoring her blood pressure at home to check it later in the evening after she has been resting and sitting down for about 1/2-hour. If her systolic is above 120s then she may resume her lisinopril but would recommend to stay off of the amlodipine at this time until she follows up with her family doctor and patient is agreeing to this plan of care. Medically she is cleared for discharge home. Review of Systems Constitutional: Denied any fatigue denied any fever. Cardio vascular: denied any chest pain, palpitations Gastrointestinal: denied any nausea, vomiting, diarrhea Pulmonary: Denied any shortness of breath cough Neurologic denied any new focal deficits All inpatient medications were reviewed and appropriate changes in these medications as dictated in the interval history and assessment and plan. PHYSICAL EXAMINATION: GENERAL: The patient is alert and oriented x3, not in any acute distress. Well developed, well nourished. HEENT: Pupils are round and equally reacting to light. EOMI. No scleral icterus. No conjunctival pallor. Normocephalic, atraumatic. No pharyngeal erythema. No thyromegaly. CARDIOVASCULAR: S1 and S2 present. No murmurs, rubs, or gallops. PULMONARY: Chest is clear to auscultation, no wheezing or crackles. ABDOMEN: Soft, nontender, nondistended, normoactive bowel sounds. No palpable organomegaly. MUSCULOSKELETAL: Deferred to orthopedic surgery EXTREMITIES: No cyanosis, clubbing, or pedal edema. NEUROLOGICAL: Gross neurological examination did not reveal any focal deficits. SKIN: No rashes. Assessment and plan -Right total knee arthroplasty pain management is being done by orthopedic surgery will monitor her postoperatively for any postop complications. -Hypertension hold off antihypertensive medications temporarily with concerns of perioperative hypotension will start on as-needed basis -Hyperlipidemia can be resumed on statin DVT prophylaxis: As per primary service. Discussed above patient will continue off of amlodipine and can resume lisinopril if her blood pressure is above 120 systolic upon discharge. She should follow-up with her PCP in week postdischarge. The impression and plan of care has been dictated by Jaci Mascorro, Nurse Practitioner as directed. Dr. Dexter MD I have performed a history and physical examination and medical decision making of this patient, discussed the same with the dictator, and agree with the dictators assessment and plan as written, documented as a scribe. Based on total visit time, I have performed more than 50% of this visit. Objective - Vital Signs Vital signs: Vital Signs Temp 97.9 F 07/12/24 08:00 Pulse 75 07/12/24 08:00 Resp 18 07/12/24 08:00 BP 125/73 07/12/24 08:00 Pulse Ox 93 L 07/12/24 08:00 FiO2 Intake & Output 07/11/24 07/12/24 07/12/24 18:59 06:59 18:59 Intake Total 1651 358 Output Total 65 Balance 1586 358 Weight 117.1 kg Intake: IV 1651 Oral 358 Output: Estimated Blood Loss 65 Other: # Voids 1 2 1 - Labs CBC & Chem 7: 07/12/24 04:50 Labs: Abnormal Lab Results - Last 24 Hours (Table) 07/12/24 Range/Units 04:50 WBC 11.72 H (4.50-10.00) X 10*3/uL RBC 3.49 L (4.10-5.20) X 10*6/uL Hgb 10.9 L (12.0-15.0) g/dL Hct 33.1 L (37.2-46.3) % Immature Gran # 0.06 H (0.00-0.04) X 10*3/uL Neutrophils # 9.80 H (1.80-7.70) X 10*3/uL Eosinophils # 0 L (0.04-0.35) X 10*3/uL
--- NOTE | 2024-08-07 18:21 | FL ---
EXAMINATION TYPE: FL guidance operating room, XR Hip Complete RT DATE OF EXAM: 07/11/2024 9:10 AM COMPARISON: Pre Operative Images if available both CT/MRI or plain film CLINICAL INDICATION: Female, 69 years old with history of RT ANTERIOR HIP; TECHNIQUE: FL guidance operating room, XR Hip Complete RT, multiple fluoroscopic images provided for procedure. Total fluoroscopy time: 11.1 seconds Total submitted images to PACS: 3 DAP: 0.9758 mGym2 Gycm2 uGym2 cGycm2 or equivalent. FINDINGS: Fluoroscopic images during internal fixation/arthroplasty demonstrate fixation hardware in appropriat e position. Hardware appears intact. No immediate complication identified. IMPRESSION: 1. No evidence for intraoperative complication. 2. Please see the operative/procedural note for further details. [facility], , 08/07/2024 6:18 PM
== END 2024-07-12 11:19 | disposition home health service (06) ==
LOC: OR 05:43 → 4SSUR 09:04 → OR 07-12 11:19
PROVIDERS: ATTEND Orthopaedic Surgery
DX: M16.11 Unilateral primary osteoarthritis, right hip (principal); E78.5 Hyperlipidemia, unspecified; G89.18 Other acute postprocedural pain; I10 Essential (primary) hypertension; Z79.82 Long term (current) use of aspirin; Z96.651 Presence of right artificial knee joint; Z79.899 Other long term (current) drug therapy
CPT/HCPCS: 64447; 73502; 85025

== ENCOUNTER → 2024-09-07 | Outpatient (CLI) | payer MEDICARE ==
[2024-09-07 16:17] LABS: INR 1.02 sec (0.93-1.11)
[2024-09-07 16:57] LABS: Blood Urea Nitrogen 11.2 mg/dL (9.0-27.0); Carbon Dioxide 28.2 mmol/L (21.6-31.8); Chloride 106 mmol/L (96-109); Glucose 95 mg/dL (70-110); Potassium 4.7 mmol/L (3.5-5.5); Sodium 143 mmol/L (135-145)
== END | disposition home or self-care (01) ==
LOC: LABPAT 08:35
PROVIDERS: ATTEND Orthopaedic Surgery
DX: Z01.812 Encounter for preprocedural laboratory examination (principal); M16.12 Unilateral primary osteoarthritis, left hip; Z22.322 Carrier or suspected carrier of Methicillin resistant Staphylococcus aureus
CPT/HCPCS: 36415; 80048; 85610; 86850; 86900; 86901; 87070

== ENCOUNTER 2024-09-17 10:29 | Day surgery (SDC) | payer MEDICARE ==
--- NOTE | 2024-09-17 08:27 | HP ---
HISTORY AND PHYSICAL Surgery is scheduled for 09/17/2024. Selina Dawn is a 69-year-old patient, seen with symptomatic left hip osteoarthritis. We discussed options. She elected to proceed with direct anterior left total hip arthroplasty. Consent regarding the procedure was obtained. She had previously received clearance by Dr. Mcclain. PAST MEDICAL HISTORY: Hypertension, hyperlipidemia. PAST SURGICAL HISTORY: Right total hip arthroplasty, section. DAILY MEDICATIONS: 1. Amlodipine. 2. Lisinopril. 3. Rosuvastatin. ALLERGIES: None. SOCIAL HISTORY: She denies tobacco use. PHYSICAL EVALUATION OF THE LEFT HIP: She has limited range of motion with pain. Positive hip impingement sign. Straight- leg raise negative. Distal neurovascular exam is intact. IMAGING STUDIES: Radiographs of the left hip revealed severe osteoarthritic changes. IMPRESSION: 1. Left hip osteoarthritis. 2. Hypertension. 3. Hyperlipidemia. PLAN: Direct anterior left total hip arthroplasty. MMODL / IJN: [id number] /
[2024-09-17] MEDS: IV FLUID CONTINUATION 1,000 ML IV ONE (10:55)
[2024-09-17] MEDS: LACTATED RINGERS 1,000 ML IV SCH (11:19)
[2024-09-17] MEDS: MELOXICAM 7.5 MG TAB PO PRN (11:19)
[2024-09-17] MEDS: ONDANSETRON 4 MG/2 ML VIAL IVP ONE (11:20)
[2024-09-17] MEDS: ACETAMINOPHEN TAB 500 MG TAB PO PRN (11:20)
[2024-09-17 11:23] LABS: HCT 38.1 % (34.0-46.0); HGB 12.5 gm/dL (11.4-16.0); MCH 30.2 pg (25.0-35.0); MCHC 32.9 g/dL (31.0-37.0); MCV 91.8 fL (80.0-100.0); Mean Platelet Volume 8.5; Platelet Count 218 k/uL (150-450); RBC 4.16 m/uL (3.80-5.40); RDW 13.9 % (11.5-15.5); WBC 5.7 k/uL (3.8-10.6)
[2024-09-17] MEDS: MIDAZOLAM 2 MG/2 ML VIAL IV ONE (11:27)
[2024-09-17] MEDS ORDERED: MIDAZOLAM 2 MG/2 ML VIAL ONE (12:31)
[2024-09-17] MEDS ORDERED: HYDROmorphone (PF) 1 MG/ML ONE (12:31)
[2024-09-17] MEDS ORDERED: ROCURONIUM 10 MG/ML (5 ML VIAL) IV ONE (12:31)
[2024-09-17] MEDS ORDERED: FLUMAZENIL 0.1 MG/ML 5 ML VIAL IVP ONE (12:31)
[2024-09-17] MEDS ORDERED: SUCCINYLCHOLINE CHLORIDE 200 MG/10 ML VIAL IV ONE (12:31)
[2024-09-17] MEDS ORDERED: TRANEXAMIC 1,000 MG/100ML-NACL PREMIX BAG ONE (12:31)
[2024-09-17] MEDS ORDERED: GLYCOPYRROLATE 0.2 MG/ML 2 ML VIAL ONE (12:31)
[2024-09-17] MEDS ORDERED: ROPIVACAINE 5 MG/ML 30 ML VIAL ONE (12:31)
[2024-09-17] MEDS ORDERED: LIDOCAINE 1% INJ 10MG/ML (20 ML MDV) ONE (12:31)
[2024-09-17] MEDS ORDERED: PROPOFOL 10 MG/ML 20 ML VIAL IV ONE (12:31)
[2024-09-17] MEDS ORDERED: fentaNYL (PF) 50 MCG/ML 2 ML AMP ONE (12:31)
[2024-09-17] MEDS ORDERED: DEXAMETHASONE SOD PHOSPHATE 4 MG/ML 1 ML VIAL ONE (12:31)
[2024-09-17] MEDS: ceFAZolin 1,000 MG in SODIUM CHLORIDE 0.9% 1,000 ML IRRIGATION ONE (12:57)
[2024-09-17] MEDS: LACTATED RINGERS 1,000 ML IV ONE (13:48)
[2024-09-17] MEDS ORDERED: NALOXONE 0.4 MG/ML 1 ML VIAL IV PRN (14:18)
[2024-09-17] MEDS ORDERED: HYDROmorphone 0.5 MG/0.5 ML SYRINGE IVP PRN ×3 (14:18)
[2024-09-17] MEDS ORDERED: HYDROcodone/APAP 7.5-325MG 1 EACH TAB PO PRN (14:18)
[2024-09-17] MEDS ORDERED: ONDANSETRON 4 MG/2 ML VIAL IVP PRN (14:18)
--- NOTE | 2024-09-17 14:18 | P.OP ---
Date of Procedure: 09/17/24 Preoperative Diagnosis: Left hip osteoarthritis Postoperative Diagnosis: Left hip osteoarthritis Procedure(s) Performed: Direct anterior left total hip arthroplasty Implants: 1. DePuy [place] 135 degree standard collared KA size 10 press-fit femoral stem 2. DePuy [place] 52 mm press-fit acetabular shell 3. DePuy [place] neutral polyethylene acetabular liner 36 mm ID 52 mm OD 4. Biolox delta ceramic femoral head +1.5 36 mm Anesthesia: GETA, regional (Erector spinae block) Surgeon: Harman Giron [employer] #1: Mario Estes Estimated Blood Loss (ml): 50 Pathology: none sent Condition: stable Disposition: PACU Indications for Procedure: 69-year-old patient who was seen with symptomatic left hip osteoarthritis. After having treatment options discussed, she elected to proceed with direct anterior left total hip arthroplasty. Operative Findings: See description of procedure Description of Procedure: The patient was taken to the operative suite. Patient underwent a general anesthetic by the department of anesthesia. Patient was then transferred to the [facility] table. Patient was given preoperative IV antibiotics and TXA. Both lower extremities were placed in standard leg spars. The hip was then prepped and draped in the normal sterile orthopedic fashion. A standard anterior incision was made beginning 3 cm lateral and 1 cm distal to the ASIS extending 10 cm. Dissection was then carried down through the subcutaneous soft tissues down to the fascia overlying the tensor fascia bishop. An incision was now made through the fascia. Careful dissection was taken down exposing the tensor fascia bishop muscle. A Cobra retractor was now placed along the medial femoral neck and a second one along the lateral femoral neck. The venous circumflex vessels were now identified, cauterized and clipped. We identified the anterior hip capsule. An incision was made through the hip capsule along the lateral border. I performed a partial anterior capsulectomy. Retractors were now placed around the femoral neck itself. A femoral neck cut was now made with a sagittal saw. It was completed with an osteotome at the lateral neck area. The femoral head was now removed without difficulty. The extremity was now rotated to 60 of external rotation. It was locked in position. Residual labrum was now debrided out. Serial reaming was performed of the acetabulum while Alex REYNA assisted holding an anterior retractor for exposure. Once we reached the appropriate size and a trial was position and fit nicely. The appropriate size was now chosen opened and made available. It was introduced into the acetabulum without difficulty. The C-arm/fluoroscopy was now brought into the operative field. We made sure we had a true AP pelvic view. We now under direct C- arm/fluoroscopy introduced into the acetabular component with appropriate version and inclination. I held the cup in appropriate position well Alex REYAN used a mallet to seat the acetabular component. I noted the component now to be well seated and stable. Acetabular cup introduce her was removed. The C-arm was pulled back. An appropriate liner was introduced and clicked into position. It was felt to be stable. At this point retractors were removed. The extremity was now placed into 140 external rotation with no traction. The leg was now dropped to the ground and adducted. Appropriate retractors were now positioned along the proximal femur. We also placed our femoral look into position. Additional capsular releasing was performed to gain access to the p roximal femur. We now used a box osteotome. A canal finder was now utilized. Serial broaching was now performed with the assistance of Alex REYNA tapping the broaches down with a mallet while held the broach in appropriate rotation and position. This was done until we reached the appropriate size with good overall rotational stability. Appropriate calcar planing was performed. A trial head/neck was placed into position. The hip was now reduced. The C- arm/fluoroscopy was brought back into the operative field. I obtained an AP pelvis demonstrating adequate leg length alignment and adequate sizing of the trial components. The C-arm/fluoroscopy was pulled back. Retractors were repositioned and the hip was dislocated. The leg was again taken down to the ground and adducted. Appropriate retractors were repositioned as well as the femoral hook. All trial components were removed. The femoral implant was opened along with the femoral head. The femoral implant was introduced on the appropriate handle into our pre-broached area. I held the component position well Alex REYNA used a mallet to seat the femoral component. The femoral component was now noted to be well seated and stable.. The femoral head was introduced with good positioning and fixation noted. Retractors were now removed. The hip was now reduced. There appeared be good positioning of the hip confirmed on intraoperative fluoroscopy. Spot films were obtained to document this. A second gram of TXA was given. Bipolar cautery had been utilized intermittently through the procedure for hemostasis. The wound was irrigated copiously with pulse lavage mechanical irrigation. The fascia was repaired with Vicryl suture. The subcutaneous soft tissues were repaired in layers with Vicryl suture. The skin was approximated with pernio/Dermabond. Sterile dressings were applied. Patient was then awakened, transferred to a bed and taken to recovery in stable condition. Alex REYNA assisted with the complex procedure.
--- NOTE | 2024-09-17 15:20 | XR ---
EXAMINATION TYPE: XR Hip Limited LT, FL guidance operating room DATE OF EXAM: 09/17/2024 2:13 PM COMPARISON: Pre Operative Images if available both CT/MRI or plain film CLINICAL INDICATION: Female, 69 years old with history of LT anterior hip; TECHNIQUE: XR Hip Limited LT, FL guidance operating room, multiple fluoroscopic images provided for p rocedure. Total fluoroscopy time: 12 seconds Total submitted images to PACS: 4 DAP: 1.2016 mGym2 Gycm2 uGym2 cGycm2 or equivalent. FINDINGS: Fluoroscopic images during internal fixation/arthroplasty demonstrate fixation hardware in appropriat e position. Hardware appears intact. No immediate complication identified. IMPRESSION: 1. No evidence for intraoperative complication. 2. Please see the operative/procedural note for further details. [facility], , 09/17/2024 3:18 PM
[2024-09-17] MEDS: HYDROmorphone 0.5 MG/0.5 ML SYRINGE IVP PRN (15:37)
--- NOTE | 2024-09-17 20:06 | P.ANPRN ---
Procedure Note - Anesthesia - Nerve Block Performed Left Eber Single Time Out Performed: Yes Date of Procedure: 09/17/24 Procedure Start Time: Procedure Stop Time: Location of Patient: PreOp Indication: Acute Post-Operative Pain, Requested by Surgeon Sedation Type: Sedate with meaningful contact maintained Preparation: Sterile Prep Position: Supine Needle Types: Pajunk Needle Gauge: 21 Ultrasound used to visualize needle placement: Yes Ultrasound used to observe medication spread: Yes Blood Aspirated: No Pain Paresthesia on Injection Noted: No Resistance on Injection: Normal Image Stored and Saved: Yes Events: Uneventful and Well Tolerated (Ropivacaine 0.5% 20 cc was dexamethasone 4 mg)
[2024-09-17] MEDS: SENNOSIDES-DOCUSATE SODIUM 1 EACH TAB PO SCH (21:11)
[2024-09-17] MEDS: ASPIRIN 325 MG TAB PO SCH (21:11)
[2024-09-18] MEDS: LACTATED RINGERS 1,000 ML IV SCH (00:43)
[2024-09-18] MEDS: MULTIVITAMINS, THERA 1 EACH TAB PO SCH (07:44)
[2024-09-18] MEDS: FAMOTIDINE 20 MG TAB PO SCH (07:44)
[2024-09-18 08:26] LABS: HGB 12.2 g/dL (12.0-15.0); RBC 3.99 X 10*6/uL (4.10-5.20); WBC 10.22 X 10*3/uL (4.50-10.00)
[2024-09-18 08:27] LABS: Basophils # (A) 0.02 X 10*3/uL (0.00-0.10); Basophils % (A) 0.2 %; Eosinophils # (A) 0 X 10*3/uL (0.04-0.35); Eosinophils % (A) 0 %; HCT 37.9 % (37.2-46.3); Lymphocytes # (A) 1.04 X 10*3/uL (0.90-5.00); Lymphocytes % (A) 10.2 %; MCH 30.6 pg (27.0-32.0); MCHC 32.2 g/dL (32.0-37.0); Mean Platelet Volume 10.9 FL (9.5-12.2); Monocytes # (A) 0.79 X 10*3/uL (0.20-1.00); Monocytes % (A) 7.7 %; NRBC Per 100 WBC 0 X 10*3/uL (0.00-0.01); Neutrophils # (A) 8.32 X 10*3/uL (1.80-7.70); Neutrophils % (A) 81.4 %; Platelet Count 204 X 10*3/uL (140-440); RDW 13.1 % (11.5-14.5)
[2024-09-18 09:06] VITALS: BP 132/75; PULSE 79; RESP 16; TEMP 97.6
[2024-09-18] MEDS: HYDROcodone/APAP 5-325MG 1 EACH TAB PO PRN (09:11)
[2024-09-18] MEDS: CHOLECALCIFEROL 25 MCG (1000 IU) TABLET PO SCH (10:23)
--- NOTE | 2024-09-18 10:39 | P.PN ---
Subjective Progress Note Date: 09/18/24 Principal diagnosis: Status post direct anterior left hip arthroplasty Patient evaluated at bedside, she is resting in her hospital chair. Patient is doing very well, she has no pain. She is urinating with no issues. She is ambulating with no problems. She has no headaches, lightheadedness, chest pain or shortness of breath at this time. Objective - Vital Signs Vital signs: Vital Signs Temp 97.6 F 09/18/24 07:33 Pulse 79 09/18/24 07:33 Resp 16 09/18/24 09:42 BP 132/75 09/18/24 07:33 Pulse Ox 93 L 09/18/24 07:33 FiO2 Intake & Output 09/17/24 09/18/24 09/18/24 18:59 06:59 18:59 Intake Total 1651 Output Total 50 Balance 1601 Weight 117.7 kg Intake: IV 1651 Output: Estimated Blood Loss 50 Other: Voiding Method Toilet # Voids 1 - Exam Left lower extremity: Incision is clean, dry, and intact. The foam dressing is in good condition. There is minimal soft tissue swelling and ecchymosis surrounding the medial and lateral aspects of the incision. Calf is soft, no tenderness with palpation. Plantar flexion, dorsiflexion, EHL, FHL are intact. Sensory exam to light touch throughout the extremity is intact, dorsal pedis pulses 2+. - Labs CBC & Chem 7: 09/18/24 03:06 Labs: Abnormal Lab Results - Last 24 Hours (Table) 09/18/24 Range/Units 03:06 WBC 10.22 H (4.50-10.00) X 10*3/uL RBC 3.99 L (4.10-5.20) X 10*6/uL Immature Gran # 0.05 H (0.00-0.04) X 10*3/uL Neutrophils # 8.32 H (1.80-7.70) X 10*3/uL Eosinophils # 0 L (0.04-0.35) X 10*3/uL Assessment and Plan Assessment: Postoperative day #1 status post direct anterior left total hip arthroplasty Plan: Pain control, patient has a [place] from her previous total hip arthroplasty at home DVT prophylaxis, aspirin 81 mg twice a day for 2 days Patient also has stool softeners at home from previous surgery Home health care after discharge Medical recommendations appreciated Discharge planning: Patient stable for discharge home today Time with Patient: Less than 30
--- NOTE | 2024-09-18 10:40 | P.DS ---
Providers Date of admission: 09/17/2024 Expected date of discharge: 09/18/24 Attending physician: Harman Giron Consults: 09/17/24 14:18 Consult Physician Routine Consulting Provider: [facility] Manish Consult Reason/Comments: Medical management Do you want consulting provider notified?: Yes Primary care physician: Yovani Brown [facility] Course: Date of admission: 09/17/2024 Date of discharge: 09/18/2024 Admission diagnosis: Status post direct anterior left total hip arthroplasty Discharge diagnosis: Same Attending physician: Dr. Giron Surgical procedures: Direct anterior left total hip arthroplasty Brief history: Patient is a 69-year-old female with a history of progressive primary left hip osteoarthritis. At this point patient has failed conservative treatment measures and has opted to proceed with a elective direct anterior left total hip arthroplasty. Hospital course: Details of patient's surgery can be found in operative report. Patient tolerated the procedure well and was subsequently transported to orthopedic floor. Patient's orthopeidc and medical care was provided daily. Patient had daily laboratory tests performed for evaluation of overall blood counts. Patient had daily physical therapy to include strengthening range of motion as well as education with walker ambulation. Patient was treated with aspirin for their postoperative DVT prophylaxis during their inpatient stay. Patient was noted to have a relatively uneventful postoperative course. Patient reported satisfactory pain control with oral pain medications by postoperative day 0. Patient showed satisfactory progress with physical therapy. Patient moved steadily through the program and had no difficulty meeting the goals by postoperative day 1. Given patient's otherwise satisfactory course and having met physical therapy goals, plan is to discharge patient home on postoperative day 1. Discharge condition/disposition: Patient will be discharged home in stable condition. Discharge medications: Instructions are given on resumption of patient's normal daily medications per primary care recommendation, in addition patient will be prescribed aspirin 81 mg. Discharge instructions: 1. Wound care and infection precautions, keep incision dry and covered while showering, no lotions, creams, moisturizers. No soaking, tubs, pools, hottubs. Do not scrub over the incision. 2. Weight-bear as tolerated with walker / cane until follow-up. 3. Ice and elevate when necessary. Do not exceed 20 minutes per hour with ice pack. 4. Utilize compression sleeve until seen at first follow up appointment. 5. Visiting nursing care. 6. Home physical therapy. 7. Pain meds and anticoagulants per prescription. 8. Pain medication has potential to cause constipation. Increase oral fluid and fiber intake. Contact primary care provider if you have not had a bowel movement within 48 hours after discharge 9. No anti-inflammatory medication until discussed at first post operative visit, this including Motrin, Aleve, Mobic, Diclofenac. 10. Follow up in office at 2 weeks postop with Alex Estes PA-C/Leander Saxena 11. Follow up with your primary care doctor 7-10 days after discharge. 12. Contact [facility] with any questions, . Procedures: Direct anterior left total hip arthroplasty Patient Condition at Discharge: Good Plan - Discharge Summary Discharge Rx Participant: Yes New Discharge Prescriptions: New Aspirin [Adult Low Dose Aspirin EC] 81 mg PO BID #60 tab No Action lisinopriL [Zestril] 10 mg PO QAM Acetaminophen Tab [Tylenol Tab] 500 - 1,000 mg PO Q4-6H PRN PRN Reason: Pain Ubidecarenone [Co Q-10] 100 mg PO HS Rosuvastatin [Crestor] 20 mg PO HS Cholecalciferol [Vitamin D3 (25 Mcg = 1000 Iu)] 25 mcg PO DAILY valACYclovir HCL [Valtrex] 1,000 mg PO BID PRN PRN Reason: Flare Up Discharge Medication List lisinopriL [Zestril] 10 mg PO QAM 05/12/23 [History] Acetaminophen Tab [Tylenol Tab] 500 - 1,000 mg PO Q4-6H PRN 07/05/24 [History] Rosuvastatin [Crestor] 20 mg PO HS 07/05/24 [History] Ubidecarenone [Co Q-10] 100 mg PO HS 07/05/24 [History] valACYclovir HCL [Valtrex] 1,000 mg PO BID PRN 07/05/24 [History] Cholecalciferol [Vitamin D3 (25 Mcg = 1000 Iu)] 25 mcg PO DAILY 09/12/24 [History] Aspirin [Adult Low Dose Aspirin EC] 81 mg PO BID #60 tab 09/18/24 [Rx] Follow up Appointment(s)/Referral(s): Mario Estes PAC [PHYSICIAN ORTHOPEDIC SHOE [employer]TER] - 2 Weeks Activity/Diet/Wound Care/Special Instructions: Orthopedic Discharge Instructions: 1. Wound care and infection precautions, keep incision dry and covered while showering, no lotions, creams, moisturizers. No soaking, pools, hot tubs. Do not scrub over incision. 2. Weight-bear as tolerated with walker / cane until follow-up. 3. Ice and elevate when necessary. Do not exceed 20 minutes per hour with ice pack. 4. Utilize compression sleeve until seen at first follow up appointment. 5. Pain meds and anticoagulants per prescription. 6. Pain medication has potential to cause constipation. Increase oral fluid and fiber intake. Contact primary care provider if you have not had a bowel movement within 48 hours after discharge. 7. No anti-inflammatory medication until discussed at first post operative visit, this including Motrin, Aleve, Mobic, Diclofenac. 8. Follow up in office at 2 weeks postop with Alex Estes PA-C/Leander Fregoso PA-C 9. Follow up with your primary care doctor 7-10 days after discharge. 10. Contact [facility] with any questions, Wound care instructions: 1. Okay to remove surgical dressing as of 09/26/2024 2. Okay to shower directly over the incision after removal of dressing Patient has pain medication and stool softeners at home Discharge Disposition: HOME WITH HOME HEALTH SERVICES
[2024-09-18] MEDS ORDERED: ATORVASTATIN 40 MG TAB PO SCH (21:00)
--- NOTE | 2024-09-19 01:57 | CONS ---
CONSULTATION REASON FOR CONSULTATION: Advice regarding hypertension, hyperlipidemia, and multiple medical issues, requested by Orthopedics. HISTORY OF PRESENT ILLNESS: This 69-year-old with a past medical history of hypertension, who underwent left hip arthroplasty. There is no history of fever, rigors. No headache, loss of consciousness, or seizures at this time. The blood pressure is well maintained. The white count is 10.22. PAST MEDICAL HISTORY: Hypertension and hyperlipidemia. Rest of the history and rest of the chart is also reviewed. HOME MEDICATIONS: Reviewed include coenzyme Q. Dose and rest of medications reviewed. ALLERGIES: None. FAMILY HISTORY: History of pancreatic cancer. SOCIAL HISTORY: No history of smoking or alcohol. REVIEW OF SYSTEMS: A 14-point review of systems is negative except as mentioned earlier. PHYSICAL EXAMINATION: VITAL SIGNS: Pulse is 79, blood pressure 130/70, and respirations 16. HEENT: Conjunctivae normal. NECK: No jugular venous distention. CARDIOVASCULAR: S1, S2. ABDOMEN: Soft. LEGS: Status post surgery. NERVOUS SYSTEM: Nonfocal. SKIN: No ulcer, rash, bleeding. JOINTS: No active deforming arthropathy. LABORATORY DATA: Noted. ASSESSMENT: 1. Status post left hip arthroplasty. 2. Hypertension. 3. Hyperlipidemia. 4. History of degenerative joint disease. RECOMMENDATIONS AND DISCUSSION: This 69-year-old woman presented after surgery. At this time, I recommend to continue current medications, continue symptomatic treatment. Recommend to close follow with primary physician after discharge. DVT prophylaxis per Orthopedic Surgery. We will follow the patient closely. Incentive spirometry. KELLEE / MILLICENTN: [id number] /
== END 2024-09-18 12:13 | disposition home health service (06) ==
LOC: OR 10:29 → 4SSUR 14:31 → OR 09-18 12:13
PROVIDERS: ATTEND Orthopaedic Surgery
DX: M16.12 Unilateral primary osteoarthritis, left hip (principal); I10 Essential (primary) hypertension; E78.5 Hyperlipidemia, unspecified; Z79.899 Other long term (current) drug therapy
CPT/HCPCS: 85027; 73501; 27130; J2250; J0690 ×2; J2405; J1171; 64999; 85025

== ENCOUNTER → 2025-02-08 | Outpatient (CLI) | payer MEDICARE ==
--- NOTE | 2025-02-08 09:04 | MM ---
Reason for Exam: Screening (asymptomatic). Last mammogram was performed 1 year(s) and 7 month(s) ago. Patient History: Menarche at age 14. First Full-Term at age 24. Postmenopausal. Patient has history of breast feeding. Paternal aunt had breast cancer, age 60. Paternal aunt had breast cancer at or over age 50. Paternal uncle had breast cancer, age 60. Risk Values: Bouchra 5 year model risk: 1.5%. NCI Lifetime model risk: 5.2%. Prior Study Comparison: 04/22/2020 Bilateral Screening Mammogram, [facility]. 07/25/2023 Bilateral MG screening mammo w CAD, [facility]. Tissue Density: The breasts are heterogeneously dense, which may obscure small masses. Findings: Analyzed By CAD. There is no suspicious group of microcalcifications or new suspicious mass in either breast. Overall Assessment: Benign, BI-RAD 2 Management: Screening Mammogram of both breasts in 1 year. . Patient should continue monthly self-breast exams. A clinical breast exam by your physician is recommended on an annual basis. This exam should not preclude additional follow-up of suspicious palpable abnormalities. Note on Bouchra scores and lifetime risk: 1. A Bouchra score greater than 3% is considered moderate risk. If this is the case, consider specialist referral to assess eligibility for a risk reducing agent. 2. If overall lifetime risk for the development of breast cancer is 20% or higher, the patient may qualify for future screening with alternating mammogram and breast MRI. [facility], , 02/08/2025 9:02 AM. Electronically signed and approved by: Shmuel Coyne M.D. [facility]
== END | disposition home or self-care (01) ==
LOC: RADMAMWWP 08:38
PROVIDERS: ATTEND Family Medicine
DX: Z12.31 Encounter for screening mammogram for malignant neoplasm of breast (principal); R92.333 Mammographic heterogeneous density, bilateral breasts; Z78.0 Asymptomatic menopausal state; Z80.3 Family history of malignant neoplasm of breast
CPT/HCPCS: 77063; 77067